=== PATIENT | female | born 1930 | race Caucasian/White ===

== ENCOUNTER → 2016-07-26 | Outpatient (CLI) | payer MEDICARE, OTHER | LOC: KOH-I 09:57 | DX: E11.9 Type 2 diabetes mellitus without complications (principal); R94.4 Abnormal results of kidney function studies | CPT/HCPCS: 93975 ==

== ENCOUNTER 2020-10-16 19:57 | Inpatient (IN) | payer MEDICARE, OTHER ==
[~2020-10-16] VITALS: Ht 165.1 cm; Wt 41.7 kg
[2020-10-16] MEDS ORDERED: ACETAMINOPHEN325 MG PO (23:47)
[2020-10-16] MEDS ORDERED: NYSTATIN1 EAC2 MC (23:48)
[2020-10-16] MEDS ORDERED: FERROUS SULFAT325 MG PO (23:49)
[2020-10-16] MEDS ORDERED: MELATONIN3 MG PO (23:50)
[2020-10-16] MEDS ORDERED: TRAMADOL HCL50 MG PO (23:51)
[2020-10-16] MEDS ORDERED: ELIQUIS5 MG PO (23:51)
[2020-10-16] MEDS ORDERED: BUDESONIDE-FO10.2 G1 INH (23:53)
[2020-10-16] MEDS ORDERED: MIRALAX17 GM PO (23:54)
[2020-10-17] MEDS ORDERED: DILTIAZEM 12HR60 MG PO (00:05)
[2020-10-17] MEDS ORDERED: LEVOCETIRIZINE D5 MG PO (00:06)
[2020-10-17 02:33] LABS: HEMOGLOBIN 14.3 gm/dl (12.3-15.3); RED BLOOD COUNT 4.89 M/UL (4.00-5.10); WHITE BLOOD COUNT 8.6 K/UL (4.5-11.0)
[2020-10-18 07:32] LABS: HEMOGLOBIN 14.1 gm/dl (12.3-15.3); RED BLOOD COUNT 4.82 M/UL (4.00-5.10)
[2020-10-18 07:33] LABS: WHITE BLOOD COUNT 11.6 K/UL (4.5-11.0)
[2020-10-19 07:22] LABS: HEMOGLOBIN 15.1 gm/dl (12.3-15.3); RED BLOOD COUNT 5.19 M/UL (4.00-5.10); WHITE BLOOD COUNT 8.7 K/UL (4.5-11.0)
[2020-10-20 03:13] LABS: HEMOGLOBIN 14.6 gm/dl (12.3-15.3); RED BLOOD COUNT 5.03 M/UL (4.00-5.10); WHITE BLOOD COUNT 8.2 K/UL (4.5-11.0)
[2020-10-22 04:48] LABS: RED BLOOD COUNT 4.87 M/UL (4.00-5.10)
[2020-10-23] MEDS ORDERED: LASIX20 MG PO (11:07)
[2020-10-23] MEDS ORDERED: LISINOPRIL5 MG PO (11:07)
== END 2020-10-23 15:30 | DRG 291 ==
LOC: PROG CARE 23:28
PROVIDERS: Family Medicine; Internal Medicine; Internal Medicine Infectious Disease; Internal Medicine Pulmonary Disease; ADMIT Internal Medicine
DX: I13.0 Hypertensive heart and chronic kidney disease with heart failure and stage 1 through stage 4 chronic kidney disease, or unspecified chronic kidney disease (principal); I50.43 Acute on chronic combined systolic (congestive) and diastolic (congestive) heart failure; J96.21 Acute and chronic respiratory failure with hypoxia; R57.0 Cardiogenic shock; R53.2 Functional quadriplegia; I48.20 Chronic atrial fibrillation, unspecified; J90 Pleural effusion, not elsewhere classified; E87.2 Acidosis; Z16.12 Extended spectrum beta lactamase (ESBL) resistance; N17.9 Acute kidney failure, unspecified; E44.0 Moderate protein-calorie malnutrition; Z68.1 Body mass index [BMI] 19.9 or less, adult; N30.90 Cystitis, unspecified without hematuria; F03.90 Unspecified dementia, unspecified severity, without behavioral disturbance, psychotic disturbance, mood disturbance, and anxiety; B96.20 Unspecified Escherichia coli [E. coli] as the cause of diseases classified elsewhere; Z20.822 Contact with and (suspected) exposure to COVID-19; I50.9 Heart failure, unspecified; I95.9 Hypotension, unspecified; E87.6 Hypokalemia; Z66 Do not resuscitate; D53.9 Nutritional anemia, unspecified; F41.9 Anxiety disorder, unspecified; E78.5 Hyperlipidemia, unspecified; J30.2 Other seasonal allergic rhinitis; N18.30 Chronic kidney disease, stage 3 unspecified; H91.90 Unspecified hearing loss, unspecified ear; Z96.643 Presence of artificial hip joint, bilateral; I42.9 Cardiomyopathy, unspecified; Z79.01 Long term (current) use of anticoagulants; Z82.49 Family history of ischemic heart disease and other diseases of the circulatory system; Z88.0 Allergy status to penicillin
CPT/HCPCS: ECHO; 36415; 71045; 80048; 80053; 80162; 81001; 82550; 82553; 83605; 83615; 83735; 83880; 84100; 84439; 84443; 84484; 85025; 86140; 87077; 87086; 87186; 93005; 93306; 94760; J1160; J1335; J1940; J1956; J2405; P9047; U0002